=== PATIENT | male | born 1945 | race Caucasian/White ===

== ENCOUNTER → 2017-01-04 | Outpatient (CLI) | payer OTHER, MEDICARE | LOC: MMPC 11:11 | PROVIDERS: ATTEND Nurse Practitioner | DX: J44.9 Chronic obstructive pulmonary disease, unspecified (principal); R09.02 Hypoxemia; M81.0 Age-related osteoporosis without current pathological fracture; E78.00 Pure hypercholesterolemia, unspecified; R30.0 Dysuria | CPT/HCPCS: 99213; G0463 ==

== ENCOUNTER → 2017-01-14 | Outpatient (CLI) | payer OTHER, MEDICARE ==
[2017-01-14 15:10] LABS: BILIRUBIN,TOTAL 0.9 mg/dL (0.3-1.2); BUN/CREATININE RATIO 27.14 (6-20); CALCIUM 9.6 mg/dL (8.7-10.7); CREATININE 0.7 mg/dL (0.70-1.50); LDL CHOLESTEROL,CALCULATED 83.4 mg/dL; POTASSIUM 4.4 meq/L (3.8-5.2); TOTAL PROTEIN 7.3 g/dL (6.1-8.0)
[2017-01-16 10:29] LABS: PSAFREE <0.1 ng/mL (()); PSATOTAL 0.15 ng/mL (<=6.5)
== END ==
LOC: LAB 13:42
PROVIDERS: ATTEND Nurse Practitioner
DX: I10 Essential (primary) hypertension (principal); E78.00 Pure hypercholesterolemia, unspecified; M81.0 Age-related osteoporosis without current pathological fracture; R30.0 Dysuria; E29.1 Testicular hypofunction; F17.210 Nicotine dependence, cigarettes, uncomplicated
CPT/HCPCS: 36415; 80053; 80061; 84153; 84154

== ENCOUNTER → 2017-02-14 | Outpatient (CLI) | payer OTHER, MEDICARE ==
[2017-02-14 10:23] LABS: BUN/CREATININE RATIO 25.71 (6-20); CALCIUM 9.4 mg/dL (8.7-10.7)
== END ==
LOC: LAB 09:42
PROVIDERS: ATTEND Internal Medicine
DX: I48.91 Unspecified atrial fibrillation (principal); I10 Essential (primary) hypertension; F17.210 Nicotine dependence, cigarettes, uncomplicated
CPT/HCPCS: 36415; 80048

== ENCOUNTER → 2017-02-21 | Outpatient (CLI) | payer OTHER, MEDICARE ==
--- NOTE | 2017-02-21 18:56 | DI ---
CT ABD W/CN AND PELVIS W/CN,02/21/2017 12:57 PM: Clinical History: History of tobacco use. Previous Exam: December 15, 2015 Findings: Multiple helically acquired CT images are obtained through the abdomen and pelvis following the intra venous administration of contrast, and demonstrate diffuse peripheral vascular calcifications. The appendix is normal. Moderate stool is noted throughout the colon. The pancreas, adrenals and kidneys are unremarkable. The spleen, gallbladder and pancreas are unremar kable. There is some irregular contour of the liver consistent with diffuse cirrhosis. The lung bases are clear. Diffuse degenerative changes of the spine are seen. Small bowel loops are not well evaluated, but are grossly normal. Impression: 1. Hepatic cirrhosis. 2. Diffuse peripheral vascular disease.
== END ==
LOC: CT 12:50
PROVIDERS: ATTEND Internal Medicine
DX: J44.9 Chronic obstructive pulmonary disease, unspecified (principal); Z87.891 Personal history of nicotine dependence
CPT/HCPCS: 74177

== ENCOUNTER → 2017-03-13 | Outpatient (CLI) | payer OTHER, MEDICARE | LOC: MMPC 11:11 | PROVIDERS: ATTEND Internal Medicine | DX: M17.11 Unilateral primary osteoarthritis, right knee (principal); I10 Essential (primary) hypertension; J44.9 Chronic obstructive pulmonary disease, unspecified; G47.33 Obstructive sleep apnea (adult) (pediatric); I25.10 Atherosclerotic heart disease of native coronary artery without angina pectoris; I48.0 Paroxysmal atrial fibrillation; Z02.89 Encounter for other administrative examinations | CPT/HCPCS: 99214; G0463 ==

== ENCOUNTER → 2017-03-27 | Outpatient (CLI) | payer OTHER, MEDICARE | LOC: MMPC 11:11 | PROVIDERS: ATTEND Internal Medicine | DX: M17.11 Unilateral primary osteoarthritis, right knee (principal); Z02.89 Encounter for other administrative examinations | CPT/HCPCS: 20610 ×2; G0463; J1040 ==

== ENCOUNTER → 2017-03-30 | Outpatient (CLI) | payer OTHER, MEDICARE | LOC: MMPC 11:11 | PROVIDERS: ATTEND Nurse Practitioner | DX: L98.9 Disorder of the skin and subcutaneous tissue, unspecified (principal) | CPT/HCPCS: 99212; G0463 ==

== ENCOUNTER 2017-03-31 05:59 | Emergency (ER) | payer OTHER, MEDICARE ==
[2017-03-31 06:23] VITALS: RESP 12; TEMP 96
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
== END 2017-03-31 06:33 | disposition home or self-care (01) ==
LOC: ER 05:59
DX: S00.81XA Abrasion of other part of head, initial encounter (principal); S50.11XA Contusion of right forearm, initial encounter; W01.0XXA Fall on same level from slipping, tripping and stumbling without subsequent striking against object, initial encounter
CPT/HCPCS: 99282

== ENCOUNTER → 2017-05-22 | Outpatient (CLI) | payer OTHER, MEDICARE ==
--- NOTE | 2017-05-22 13:25 | DI ---
XR SHOULDER MIN 2VW,05/22/2017 10:33 AM: Clinical History: Right shoulder pain. Previous Exam: November 06, 2011 Findings: 3 views of the right shoulder are obtained, and demonstrate advanced degenerative changes which appea r stable from the prior exam. This is worst at the right glenohumeral joint. There are some mild degenerative changes of the right acromioclavicular joint. Diffuse osteopenia is noted. There is a new bony fragment just inferior to the right lower clinoid not seen on the examination fro 2010. The adjacent right lung and chest wall is unremarkable. There is also a pacemaker noted. Multiple sternotomy wires are noted. Impression: Advanced degenerative osteoarthritis of the right shoulder with a new osseous fragment along the infe rior margin of the glenoid most likely representing an osteochondral defect.
== END ==
LOC: ORTHO 10:54
PROVIDERS: ATTEND Physician Assistant
DX: M25.511 Pain in right shoulder (principal); M19.011 Primary osteoarthritis, right shoulder; M75.41 Impingement syndrome of right shoulder
CPT/HCPCS: 73030

== ENCOUNTER → 2017-06-12 | Outpatient (CLI) | payer OTHER, MEDICARE | LOC: MMPC 11:11 | PROVIDERS: ATTEND Internal Medicine | DX: M17.11 Unilateral primary osteoarthritis, right knee (principal); I10 Essential (primary) hypertension; J44.9 Chronic obstructive pulmonary disease, unspecified; G47.33 Obstructive sleep apnea (adult) (pediatric); M96.1 Postlaminectomy syndrome, not elsewhere classified | CPT/HCPCS: 20610 ×2; 99214; G0463; J1040 ==

== ENCOUNTER 2018-12-06 06:45 | Inpatient (IN) ==
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
[2018-12-06] MEDS ORDERED: IPRATROPIUM/ALBUTEROL SULFATE 3 ML NEB NEB ONE (07:15)
[2018-12-06] MEDS ORDERED: KETOROLAC 15 MG/1 ML VIAL IVP ONE (07:15)
[2018-12-06] MEDS ORDERED: ONDANSETRON 4 MG/2 ML VIAL IVP ONE (07:15)
[2018-12-06 07:38] LABS: Hematocrit [HCT] 44.4 % (42.0-52.0); Hemoglobin [HGB] 14.7 g/dL (14.0-18.0); MEAN CORPUSCULAR HEMOGLOBIN 29.9 PG (27-31); MEAN CORPUSCULAR HGB CONC 33.1 g/dL (33-37); MEAN CORPUSCULAR VOLUME 90.4 FL (80-90); RED BLOOD COUNT 4.91 10^6/uL (4.70-6.10)
[2018-12-06 07:39] LABS: BASOPHILS # (AUTO) 0.05 10*3/UL; BASOPHILS % (AUTO) 0.6 % (0-1); EOSINOPHILS # (AUTO) 0.22 10*3/UL; EOSINOPHILS % (AUTO) 2.6 % (0-8); LYMPHOCYTES # (AUTO) 1.63 10*3/uL; MEAN PLATELET VOLUME 10.7 FL (7.4-12.2); MONOCYTES # (AUTO) 0.86 10*3/UL (0.3-0.8); MONOCYTES % (AUTO) 10.2 % (5-15); NEUTROPHILS # (AUTO) 5.67 10*3/UL; NEUTROPHILS % (AUTO) 67.1 % (50-80); PLATELET MORPHOLOGY COMMENT NORMAL MORPHOLOGY (NORM); RBC MORPHOLOGY COMMENT NORMAL MORPHOLOGY (NORM); WBC MORPHOLOGY COMMENT NORMAL MORPHOLOGY (NORM)
[2018-12-06 07:45] LABS: BLOOD UREA NITROGEN 17 mg/dL (7-22); BUN/CREATININE RATIO 24.28 (6-20); SERUM ALBUMIN 4.3 g/dL (3.5-4.8)
--- NOTE | 2018-12-06 08:35 | DI ---
CT Head WO Contrast 12/06/2018 7:10 AM [place] [facility] [place] Comparison: 05/28/2016. Procedure: Noncontrast axial CT images through the head were obtained at 5 mm with coronal and sagitt al reformations. Bony algorithm axial reconstructions were also provided. Findings: There is no intracranial hemorrhage or extra-axial fluid collection. The ventricles are sy mmetric. There is mild global atrophy which is within the expected range for age. Decreased attenua tion in the periventricular and subcortical white matter is consistent with mild chronic small vessel ischemic changes. There is otherwise normal claros-white differentiation without focal mass or mass-e ffect. The visualized portions of the mastoid air cells are clear. There is mild mucosal thickening o f the ethmoid air cells and right sphenoid sinus, consistent with chronic sinus disease. Review of th e osseous structures demonstrate no depressed calvarial fracture or aggressive osseous lesion. There are postsurgical changes of the right globe. The facial soft tissues are unremarkable. Impression: 1. No acute intracranial findings. 2. Chronic changes as above.
--- NOTE | 2018-12-06 09:03 | DI ---
CT Chest W Contrast 12/06/2018 7:07 AM History: [facility] DI ^sob Comparison: Chest x-ray from 12/05/2018. Technique: Contrast enhanced CT of the chest was performed after the administration of 59 mL of Isovu e intravenous contrast. Axial, coronal, and sagittal images were obtained from the thoracic inlet thr ough the lung bases. Findings: Early emphysematous changes are noted bilaterally. There is no consolidation, pneumothorax, or pleural effusion. There is a 9 mm fissural nodule along the horizontal fissure of the right lung. No other suspicious nodules are detected. There is mild diffuse bronchial wall thickening with no endobronchial lesion. There is no mediastinal or hilar lymphadenopathy. The aorta demonstrates normal course and caliber. There are atheromatous a ortic and coronary artery calcifications. The main pulmonary artery is dilated at 3.6 cm. The patient is status post median sternotomy. There is a 2-lead left chest cardiac device with wire tips in the right atrium and right ventricle. Heart size is at the upper limits of normal with no pericardial eff usion. The posterior pericardium is calcified, a finding that can be seen in the setting of prior inf ection or inflammation. The thyroid exhibits normal CT morphology. Osseous structures are notable for severe degenerative changes of the right glenohumeral joint. There are extensive splenic artery calcifications without aneurysmal dilatation. The visualized upper abdominal structures are otherwise grossly normal. Impression: 1. Borderline cardiomegaly without evidence of pulmonary edema. 2. Emphysematous changes are present bilaterally. There is no dense consolidation, pneumothorax, or p leural effusion. 3. The main pulmonary artery is dilated, a finding that can be seen in the setting of pulmonary arter y hypertension. 4. Mild diffuse bronchial wall thickening, a finding associated with acute and chronic bronchitis.
[2018-12-06] MEDS ORDERED: ONDANSETRON 4 MG/2 ML VIAL IVP PRN (12:20)
[2018-12-06] MEDS ORDERED: FLUCONAZOLE 150 MG PO SCH (12:20)
[2018-12-06] MEDS ORDERED: LIDOCAINE W/ SODIUM BICARB 0.5 ML SYR SUBD PRN (12:20)
[2018-12-06] MEDS ORDERED: NYSTATIN 15 GM POWDER TOPICAL PRN (12:20)
[2018-12-06] MEDS ORDERED: DICLOFENAC SODIUM 4 GM TOPICAL SCH (13:00)
--- NOTE | 2018-12-06 15:09 | EKG ---
[address] [address] Measurements Intervals [place] Rate: P: [place]: 0 QRS: -63 QRSD: 170 T: 84 QT: 473 QTc: 473 Interpretive Statements ATRIAL FIBRILLATION WITH ELECTRONIC VENTRICULAR PACEMAKER ABNORMAL RHYTHM ECG Compared to ECG 10/05/2018 17:38:56 No significant changes Electronically Signed On 12-07-18 16:17:25 MST by Cecil Angelo [email or web address]
--- NOTE | 2018-12-06 15:38 | PDOC ---
HPI - History of Present Illness Date of Service: 12/06/18 Time of Service: 15:32 Chief Complaint: Falling into crews, dizzy History of Present Illness: This very pleasant but very confused 73-year-old male who has had 2 COPD exacerbations in the last 6 weeks, and was recently seen in the clinic on 12/05/2017 and placed on doxycycline and steroids. He came into the emergency room today stating that he had a hard time walking around his house, and was falling into crews. However when I woke him up, the patient was quite exhausted, occasionally had twitches of his upper extremities and lower extremities. Seemed almost post ictal, and confused. A Mini-Mental state examination done at bedside had a score of 13/30. I do not know if he has underlying dementia but it is not listed in his problems at the clinic on my review of the medical record. He cannot tell me if he got better in the emergency room with breathing therapies or not. He was given a dose of albuterol down there. CT scan of the chest did not show any evidence of pneumonia but does show evidence of emphysema with probable bronchitis. He smokes. He denies any chest pain. He denies any prior history of seizures. His recall of current events was not there at all. During the event and which I size eyes flutter and his arms twitch, I wonder if he wasn't having seizures and I ordered a brain MRI scan, but unfortunately cannot do that because he has a pacemaker in place for sick sinus syndrome in the past. His initial troponin is negative. Past Medical History Medical History: The patient cannot provide me any details of his medical history. Based on review of the medical record, the patient has a following iss ues: 1. Coronary artery disease status post CABG. 2. COPD no oxygen requirement at home in a patient who continues to smoke. 3. Hypertension. 4. Atrial fibrillation on Xarelto for stroke prevention. 5. Sick sinus syndrome status post pacemaker. 6. Tobacco abuse. 7. Glaucoma. 8. Osteoarthritis Surgical History: The patient could not detail to me surgeries in the past. However, he has had CABG and a left knee replacement. He has also had a pacemaker placed. Has had a back surgery. Per my review of the medical record these had a pericardiectomy and also has had a tonsillectomy. The patient could only recall that he had had a tonsillectomy. Pertinent Family History: At first the patient said he did not recall but stated that his mother had had a stroke. Past Social History: Smokes daily. Does not drink alcohol. Lives alone. Has 5 children. Tobacco Use: Current Every Day Smoker In the Past 12 Months, Have Used or Abuse Any of the Following Substance: None Alcohol Use: None Medication / Allergies Home Medications: Home Medications Medication Instructions Recorded Confirmed Type Latanoprost [Xalatan] 1 drp OP DAILY drp 02/10/14 12/06/18 History Denosumab [Prolia] 60 mg SUBCUT every 6 months #0 ml 02/11/16 12/06/18 History Diclofenac Sodium [Voltaren] 4 gm TOPICAL QID #3 tube 05/22/17 12/06/18 Rx umeclidinium 62.5 mcg/actuation 62.5 mcg INH QD #30 ea 02/25/18 12/06/18 Clinic blister powder for inhalation olmesartan 40 mg tablet 40 mg PO DAILY #90 tab 04/29/18 12/06/18 Rx rosuvastatin 20 mg tablet 20 mg PO QDAY #90 tab 05/02/18 12/06/18 Rx fluconazole 150 mg tablet 150 mg PO QDAY #5 tab 05/06/18 12/06/18 Rx nystatin 100,000 unit/gram topical 1 applic TOPICAL TID PRN #30 g 08/27/18 12/06/18 Rx powder rivaroxaban 20 mg tablet 20 mg PO QDAY #90 tab 10/15/18 12/06/18 Rx duloxetine 30 mg capsule,delayed 30 mg PO QHS #90 cap 10/30/18 12/06/18 Rx release ipratropium-albuterol 0.5 mg-3 3 ml INH Q4-6H PRN #180 ml 11/15/18 12/06/18 Rx mg(2.5 mg base)/3 mL nebulization soln doxycycline hyclate 100 mg capsule 100 mg PO BID 10 Days #20 cap 12/05/18 12/06/18 Rx prednisone 10 mg tablet 40 mg PO QDAY #28 tab 12/05/18 12/06/18 Rx Allergies/Adverse Reactions: Allergies Allergy/AdvReac Type Severity Reaction Status Date / Time No Known Drug Allergies Allergy NOT Verified 12/06/18 11:19 APPLICABLE PAIN CONTRACT AdvReac NOT Uncoded 12/06/18 11:19 APPLICABLE Review of Systems - Review of Systems ROS Unobtainable: Due to Mental Status (Patient was very confused and I could not obtain a good review of systems. The patient does deny chest pain. He really cannot describe his respiratory symptoms. He denies any nausea or vomiting. When I asked him if these had seizures, he states "that does not sound like me") Exam - Vitals Vital Signs: Vital Signs Temperature 97.4 F Temperature Source Temporal Artery Scan Pulse Rate [Pulse Oximeter] 88 Pulse Rate 60 Respiratory Rate 20 Blood Pressure [Left Arm] 159/74 Blood Pressure 126/77 Pulse Ox 90 Oxygen Flow Rate 1 Oxygen Delivery Method Nasal Cannula Height 5 ft 8 in Weight 220 lb - General General Appearance: No Acute Distress, Cooperative - Head Head Exam: Normal Inspection, Normocephalic, Atraumatic - Eye Eye Exam: POSITIVE: No Scleral Icterus - ENT ENT Exam: POSITIVE: Mucous Membranes Moist - Neck Neck Exam: JVP is not Raised - Respiratory Respiratory Exam: POSITIVE: Breathing Non Labored, Wheezes - Cardiovascular Cardiovascular Exam: POSITIVE: RRR, No Murmur, No Clicks, No Gallops, No Rubs, No JVD - GI/Abdominal GI/Abdominal Exam: POSITIVE: Normal Bowel Sounds, Non Tender, Non Distended, Soft - Rectal Rectal Exam: POSITIVE: Deferred - External Exam: POSITIVE: Deferred Exam: POSITIVE: Deferred - Extremities Extremities Exam: POSITIVE: No Clubbing Present, No Edema Present, No Cyanosis Present - Back Back Exam: POSITIVE: No CVA Tenderness - Neurological Neurological Exam: POSITIVE: Alert, No Facial Droop, Speech Intact / Clear, Moves All Extremities Equally, Altered (Alert to self. Not alert to place, time, or situation.) - Psychiatric Psychiatric Exam: POSITIVE: Normal Affect, Normal Mood - Integumentary Integumentary Exam: POSITIVE: Warm, Dry, Intact Results - Labs CBC and BMP: 12/06/18 07:29 12/06/18 07:29 Additional Lab Results: Laboratory Results 12/06/18 12/06/18 12/06/18 07:29 07:29 07:29 WBC 8.45 RBC 4.91 Hgb 14.7 Hct 44.4 MCV 90.4 H MCH 29.9 MCHC 33.1 RDW Std Deviation 50.3 H RDW Coeff of Jaden 15.3 H Plt Count 158 MPV 10.7 Immature Gran % (Auto) 0.2 Neut % (Auto) 67.1 Lymph % (Auto) 19.3 Menard % (Auto) 10.2 Eos % (Auto) 2.6 Baso % (Auto) 0.6 Immature Gran # (Auto) 0.02 Neut # (Auto) 5.67 Lymph # (Auto) 1.63 Menard # (Auto) 0.86 H Eos # (Auto) 0.22 Baso # (Auto) 0.05 WBC Morphology Comment Normal morphology Plt Morphology Comment Normal morphology RBC Morph Comment Normal morphology PT INR D-Dimer 0.49 Sodium 138 Potassium 4.7 Chloride 102 Carbon Dioxide 28 Anion Gap 8 BUN 17 Creatinine 0.7 BUN/Creatinine Ratio 24.28 H Glucose 95 Calculated Osmolality 287.0 Calcium 9.4 Magnesium 2.0 Total Bilirubin 1.1 AST 28 ALT 18 L Alkaline Phosphatase 55 Troponin I Handheld C-Reactive Protein 3.4 H NT-Pro-B Natriuret Pep 1530 H Total Protein 7.0 Albumin 4.3 Globulin 2.7 Albumin/Globulin Ratio 1.50 12/06/18 12/06/18 07:29 07:29 WBC RBC Hgb Hct MCV MCH MCHC RDW Std Deviation RDW Coeff of Jaden Plt Count MPV Immature Gran % (Auto) Neut % (Auto) Lymph % (Auto) Menard % (Auto) Eos % (Auto) Baso % (Auto) Immature Gran # (Auto) Neut # (Auto) Lymph # (Auto) [place]ard # (Auto) Eos # (Auto) Baso # (Auto) WBC Morphology Comment Plt Morphology Comment RBC Morph Comment PT 10.8 INR 1.06 D-Dimer Sodium Potassium Chloride Carbon Dioxide Anion Gap BUN Creatinine BUN/Creatinine Ratio Glucose Calculated Osmolality Calcium Magnesium Total Bilirubin AST ALT Alkaline Phosphatase Troponin I Handheld 0.010 C-Reactive Protein NT-Pro-B Natriuret Pep Total Protein Albumin Globulin Albumin/Globulin Ratio - EKG Data -: EKG Interpreted by Me - EKG Data EKG Interpretation: Other (Pacemaker noted, paced rhythm) - Imaging Status: Image Reviewed by Me (Chest x-ray from 12/05/2018 does not show any evidence of pneumonia. On my view of the CT scan, no pneumonia. Head CT scan does not show any acute bleeding.) Assessment and Plan - Patient Problems (1) Altered mental status Current Visit: Yes Status: Acute Code(s): R41.82 - Altered mental status, unspecified Qualifiers: Altered mental status type: disorientation Qualified Code(s): R41.0 - Disorientation, unspecified (2) COPD exacerbation Current Visit: Yes Status: Acute Code(s): J44.1 - Chronic obstructive pulmonary disease with (acute) exacerbation (3) Tobacco use disorder Current Visit: Yes Status: Chronic Onset Date: 03/07/16 Code(s): F17.200 - Nicotine dependence, unspecified, uncomplicated (4) Obstructive sleep apnea syndrome in adult Current Visit: Yes Status: Chronic Onset Date: 02/28/11 Comment: Admits noncompliance with CPAP Code(s): G47.33 - Obstructive sleep apnea (adult) (pediatric) (5) Hypercholesterolemia Current Visit: Yes Status: Chronic Onset Date: 02/10/14 Code(s): E78.00 - Pure hypercholesterolemia, unspecified (6) Coronary arteriosclerosis Current Visit: Yes Status: Chronic Onset Date: 02/10/14 Code(s): I25.10 - Atherosclerotic heart disease of cabaz[place] coronary artery without angina pectoris (7) Benign essential hypertension Current Visit: Yes Status: Acute Onset Date: 02/28/11 Code(s): I10 - Essential (primary) hypertension (8) Chronic atrial fibrillation Current Visit: Yes Status: Chronic Onset Date: 02/10/14 Code(s): I48.2 - Chronic atrial fibrillation - Assessment / Plan Additional Assessment/Plan Details: I spoke with the emergency room physician. The patient was alert and oriented in the emergency room, did not exhibit any signs of seizure activity. But on my examination he had convulsion-like activity of his upper extremities, twitching of his eyes, and confusion as of postictal period those episodes would come and go and he fell asleep often during my examination. He would then wake up and seemed very confused on his location and whereabouts. He could follow basic commands and I wonder if he is not having a seizure. I spoke with the neurologist in [place] and based on the description of the event here today, but lack of infectious signs or symptoms, the suggestion was to treat for seizures and Keppra 500 twice a day and consider an EEG as an outpatient. It was recommended that if the patient develops any fever or any infectious signs or symptoms such as an elevated white blood cell count, that the patient should have a spinal tap performed. The neurologist would like an update tomorrow if possible. I will go ahead and continue prednisone and IV Zithromax for her COPD exacerbation. I'll stop the doxycycline at this time. Add in when necessary albuterol and also scheduled Spiriva. Labs in a.m. There is report of cirrhosis in the medical record on my review but I don't think the patient has not based on exam or on labs that I am aware of but I will go ahead and check an ammonia level. Oxygen as needed per protocol. I called the patient's son, Cristhian, but he was not available and I left a message to call about Hospital back so I can get some corroborating or collateral information. I cannot confirm the patient's CODE STATUS so he is full code for now. Complex, mental status really throws a curb into this patient's situation, and I do not think that he will be able to have this all elucidated within one midnight and therefore I will admit him as an inpatient with a COPD exacerbation and altered mental status probably related to seizure of new onset. I cannot get a brain MRI as patient has a pacemaker present.
[2018-12-06] MEDS ORDERED: Rivaroxaban Tab 10 MG TAB PO SCH (17:00)
[2018-12-06] MEDS ORDERED: LORazepam 2 MG/1 ML VIAL IM PRN (19:40)
[2018-12-06] MEDS ORDERED: Rosuvastatin Tab 20 MG TAB PO SCH (21:00)
[2018-12-06] MEDS ORDERED: DULOXETINE 30 MG CAPSULE PO SCH (21:00)
[2018-12-06] MEDS: ALBUTEROL SULFATE 2.5 MG/3 ML NEB PRN (21:31)
[2018-12-07] MEDS ORDERED: LORazepam 2 MG/1 ML VIAL IVP PRN (01:14)
[2018-12-07 04:37] LABS: BASOPHILS # (AUTO) 0.06 10*3/UL; BASOPHILS % (AUTO) 1.2 % (0-1); EOSINOPHILS # (AUTO) 0.35 10*3/UL; EOSINOPHILS % (AUTO) 6.7 % (0-8); LYMPHOCYTES # (AUTO) 1.79 10*3/uL; MEAN CORPUSCULAR HEMOGLOBIN 29.3 PG (27-31); MEAN CORPUSCULAR HGB CONC 31.7 g/dL (33-37); MEAN CORPUSCULAR VOLUME 92.3 FL (80-90); MEAN PLATELET VOLUME 11.2 FL (7.4-12.2); MONOCYTES # (AUTO) 0.55 10*3/UL (0.3-0.8); MONOCYTES % (AUTO) 10.6 % (5-15); NEUTROPHILS # (AUTO) 2.44 10*3/UL; RED BLOOD COUNT 4.44 10^6/uL (4.70-6.10)
[2018-12-07 04:40] LABS: PLATELET MORPHOLOGY COMMENT NORMAL MORPHOLOGY (NORM); RBC MORPHOLOGY COMMENT NORMAL MORPHOLOGY (NORM); WBC MORPHOLOGY COMMENT NORMAL MORPHOLOGY (NORM)
[2018-12-07 04:46] LABS: BLOOD UREA NITROGEN 17 mg/dL (7-22); BUN/CREATININE RATIO 28.33 (6-20)
[2018-12-07] MEDS ORDERED: TIOTROPIUM BROMIDE 18 MCG CAPSULE INH SCH (07:00)
[2018-12-07 07:16] VITALS: BP 127/90; TEMP 96.8
[2018-12-07] MEDS ORDERED: Olmesartan Tab 40 MG TAB PO SCH (09:00)
[2018-12-07] MEDS ORDERED: ENOXAPARIN SODIUM 40 MG/0.4 ML SYRINGE SUBCUT SCH (09:00)
[2018-12-07] MEDS ORDERED: predniSONE Tab 20 MG TAB PO SCH (09:00)
[2018-12-07] MEDS ORDERED: LATANOPROST 0.005% 2.5 ML EYE DROPS EACH EYE SCH (09:00)
[2018-12-07] MEDS: ALBUTEROL SULFATE 2.5 MG/3 ML NEB PRN (10:12)
[2018-12-07 10:15] VITALS: RESP 12
--- NOTE | 2018-12-07 10:45 | DCSUMMARY ---
Hospitalization Summary Hospital Course: Final Discharge Diagnosis: Current Visit Problems Problem Status Onset Code Bronchitis Acute J40 Dizziness Acute R42 Altered mental status Acute R41.82 COPD exacerbation Acute J44.1 Tobacco use disorder Chronic 03/07/16 F17.200 Obstructive sleep apnea syndrome in adult Chronic 02/28/11 G47.33 Hypercholesterolemia Chronic 02/10/14 E78.00 Coronary arteriosclerosis Chronic 02/10/14 I25.10 Benign essential hypertension Acute 02/28/11 I10 Chronic atrial fibrillation Chronic 02/10/14 I48.2 Diagnostic Data, Laboratory Data, and Procedures of Signifigance: Laboratory Results 12/06/18 12/07/18 12/07/18 17:33 04:13 04:13 WBC 5.19 RBC 4.44 L Hgb 13.0 L Hct 41.0 L MCV 92.3 H MCH 29.3 MCHC 31.7 L RDW Std Deviation 50.4 H RDW Coeff of Jaden 15.3 H Plt Count 135 L MPV 11.2 Immature Gran % (Auto) 0 Neut % (Auto) 47.0 L Lymph % (Auto) 34.5 Sunflower % (Auto) 10.6 Eos % (Auto) 6.7 Baso % (Auto) 1.2 H Immature Gran # (Auto) 0 Neut # (Auto) 2.44 Lymph # (Auto) 1.79 Sunflower # (Auto) 0.55 Eos # (Auto) 0.35 Baso # (Auto) 0.06 WBC Morphology Comment Normal morphology Plt Morphology Comment Normal morphology RBC Morph Comment Normal morphology Sodium 137 Potassium 4.2 Chloride 106 Carbon Dioxide 29 Anion Gap 2 L BUN 17 Creatinine 0.6 L Estimated GFR Granulator Operator BUN/Creatinine Ratio 28.33 H Glucose 80 Calculated Osmolality 284.0 Calcium 8.3 L Ammonia 10 History and Physical pertinent to Admission: Past Medical History Medical History: The patient cannot provide me any details of his medical history. Based on review of the medical record, the patient has a following issues: 1. Coronary artery disease status post CABG. 2. COPD no oxygen requirement at home in a patient who continues to smoke. 3. Hypertension. 4. Atrial fibrillation on Xarelto for stroke prevention. 5. Sick sinus syndrome status post pacemaker. 6. Tobacco abuse. 7. Glaucoma. 8. Osteoarthritis Surgical History: The patient could not detail to me surgeries in the past. However, he has had CABG and a left knee replacement. He has also had a pacemaker placed. Has had a back surgery. Per my review of the medical record these had a pericardiectomy and also has had a tonsillectomy. The patient could only recall that he had had a tonsillectomy. Pertinent Family History: At first the patient said he did not recall but stated that his mother had had a stroke. Past Social History: Smokes daily. Does not drink alcohol. Lives alone. Has 5 children. Tobacco Use: Current Every Day Smoker In the Past 12 Months, Have Used or Abuse Any of the Following Substance: None Alcohol Use: None Course of Hospitalization: This is a very nice 72-year-old gentleman with a history of COPD 2 exacerbations in the last 6 weeks being treated with steroids and antibiotics at present time was admitted to the hospital because he stated that he had a hard time walking around his house and that was falling into the crews and he could not stop it. Was admitted overnight treated with Keppra Ativan he keeps on having what I believe are seizures this morning when I evaluated him he was talking to me and following commands and then all of a sudden he blanked out with the stair not following commands and 5 seconds later and he started following commands again. Please see H&P from my colleague I discussed the case with Dr. Low neurology at [facility] my colleague Dr. Rodriguez already had spoken to him yesterday and they had discussed that if things were not better with therapy patient would need a neurology and evaluation. I did discuss the case again with him and he recommended patient be transferred to [facility] for neurology evaluation. Dr. Low accepted the patient in transfer On the date of discharge, the patient was examined: Gen.: No acute distress, alert, nontoxic Heart: Regular rate and rhythm, no murmurs, clicks, gallops, or rubs Lungs: Decreased breath sounds bilaterally Abdomen/GI: Normal tones on auscultation, soft, nontender, nondistended Musculoskeletal/extremities: No clubbing, cyanosis, or edema Neurology patient follows commands and suddenly has the and absent stair which showed resolved in 5-10 seconds and this is being going on since admission as per nursing as well Vitals reviewed and are listed below Vital Signs (24 hrs) 12/06/18 12:15 12/06/18 12:21 12/06/18 13:00 Temperature 97.4 F 97.2 F Pulse Rate 60 Pulse Rate [Pulse Oximeter] 88 62 Respiratory Rate 16 20 20 Blood Pressure 126/77 Blood Pressure [Left Arm] 126/66 Blood Pressure [Right Arm] Pulse Ox 90 93 12/06/18 15:00 12/06/18 17:00 12/06/18 18:59 Temperature 97.8 F Pulse Rate 60 60 Pulse Rate [Pulse Oximeter] 59 L Respiratory Rate 20 Blood Pressure Blood Pressure [Left Arm] 144/82 Blood Pressure [Right Arm] Pulse Ox 94 94 12/06/18 20:37 12/06/18 20:38 12/06/18 21:31 Temperature 98.2 F Pulse Rate 60 Pulse Rate [Pulse Oximeter] 59 L Respiratory Rate 12 14 Blood Pressure Blood Pressure [Left Arm] Blood Pressure [Right Arm] 148/75 Pulse Ox 95 95 95 12/06/18 21:32 12/06/18 23:01 12/06/18 23:11 Temperature Pulse Rate 60 60 Pulse Rate [Pulse Oximeter] Respiratory Rate 14 Blood Pressure Blood Pressure [Left Arm] Blood Pressure [Right Arm] Pulse Ox 94 12/07/18 00:01 12/07/18 03:00 12/07/18 03:41 Temperature 97.6 F Pulse Rate 60 Pulse Rate [Pulse Oximeter] 60 Respiratory Rate 12 Blood Pressure Blood Pressure [Left Arm] Blood Pressure [Right Arm] 142/94 Pulse Ox 93 93 12/07/18 04:30 12/07/18 04:42 12/07/18 07:00 Temperature 98.0 F Pulse Rate 60 Pulse Rate [Pulse Oximeter] 60 Respiratory Rate 12 Blood Pressure Blood Pressure [Left Arm] Blood Pressure [Right Arm] 105/61 Pulse Ox 93 97 96 12/07/18 07:15 12/07/18 10:12 12/07/18 10:13 Temperature 96.8 F Pulse Rate 60 60 Pulse Rate [Pulse Oximeter] 61 Respiratory Rate 16 12 12 Blood Pressure Blood Pressure [Left Arm] 127/90 Blood Pressure [Right Arm] Pulse Ox 96 97 Assessment and Plan: 1. As per discharge assessments above 2. Disposition: Transferred to [facility] 3. Condition on discharge, stable and improved. 4. Diet: regular diet 5. Activities: resume normal activities 6. Follow-Up: 1. PCP 2. 7. Medications at the Time of Discharge: Active Medications Generic Name Dose Route Start Last Admin Trade Name Freq PRN Reason Stop Dose Admin Albuterol Sulfate 2.5 mg 12/06/18 12:20 12/07/18 10:12 Albuterol Neb Soln 0.083% NEB 2.5 mg Q1H PRN Administration Shortness of Breath Azithromycin 500 mg 12/08/18 14:00 Zithromax PO 12/12/18 14:01 Q24H TARUN Duloxetine HCl 30 mg 12/06/18 21:00 12/06/18 20:30 Cymbalta PO 30 mg BEDTIME TARUN Administration Azithromycin 500 mg/ Sodium 250 mls @ 250 mls/hr 12/06/18 14:00 12/06/18 14:33 Chloride IV 12/08/18 13:59 250 mls/hr Q24H TARUN Administration Sodium Chloride 25 mls @ 200 mls/hr 12/06/18 12:20 12/06/18 17:45 Normal Saline 0.9% IV 200 mls/hr .Post Infusion PRN Administration No Primary IV for Flush ONLY Levetiracetam 500 mg/ Sodium 105 mls @ 400 mls/hr 12/06/18 21:00 12/07/18 09:07 Chloride IV 400 mls/hr BID TARUN Administration Latanoprost 1 drp 12/07/18 09:00 12/07/18 09:07 Xalatan Ophth Soln 0.005% EACH EYE 1 drp DAILY TARUN Administration Lidocaine HCl 0.5 ml 12/06/18 12:20 Lidocaine Buffered Inj SUBD ONCE PRN IV Starts Lorazepam 2 mg 12/06/18 19:40 12/06/18 20:17 Ativan Inj IM 2 mg ONCE PRN Administration seizure Lorazepam 2 mg 12/07/18 01:14 12/07/18 01:20 Ativan Inj IVP 2 mg Q1H PRN Administration seizure activity Nystatin 1 applic 12/06/18 12:20 Mycostatin Powder TOPICAL TID PRN Rash Olmesartan 40 mg 12/07/18 09:00 12/07/18 09:07 Benicar PO 40 mg DAILY TARUN Administration Ondansetron HCl 4 mg 12/06/18 12:20 Zofran Inj IVP Q6H PRN NAUSEA / VOMITING Prednisone 40 mg 12/07/18 09:00 12/07/18 09:07 Deltasone Tab PO 12/21/18 08:59 40 mg DAILY TARUN Administration Rosuvastatin Calcium 20 mg 12/06/18 21:00 12/06/18 20:30 Crestor PO 20 mg BEDTIME TARUN Administration Tiotropium [place] 18 mcg 12/07/18 07:00 12/07/18 06:26 Spiriva Inhalation Cap INH 18 mcg RTDAILY TARUN Administration Home Medications Medication Instructions Recorded Confirmed Type Latanoprost [Xalatan] 1 drp OP DAILY drp 02/10/14 12/06/18 History Denosumab [Prolia] 60 mg SUBCUT every 6 months #0 ml 02/11/16 12/06/18 History Diclofenac Sodium [Voltaren] 4 gm TOPICAL QID #3 tube 05/22/17 12/06/18 Rx umeclidinium 62.5 mcg/actuation 62.5 mcg INH QD #30 ea 02/25/18 12/06/18 Clinic blister powder for inhalation olmesartan 40 mg tablet 40 mg PO DAILY #90 tab 04/29/18 12/06/18 Rx rosuvastatin 20 mg tablet 20 mg PO QDAY #90 tab 05/02/18 12/06/18 Rx fluconazole 150 mg tablet 150 mg PO QDAY #5 tab 05/06/18 12/06/18 Rx nystatin 100,000 unit/gram topical 1 applic TOPICAL TID PRN #30 g 08/27/18 12/06/18 Rx powder rivaroxaban 20 mg tablet 20 mg PO QDAY #90 tab 10/15/18 12/06/18 Rx duloxetine 30 mg capsule,delayed 30 mg PO QHS #90 cap 10/30/18 12/06/18 Rx release ipratropium-albuterol 0.5 mg-3 3 ml INH Q4-6H PRN #180 ml 11/15/18 12/06/18 Rx mg(2.5 mg base)/3 mL nebulization soln doxycycline hyclate 100 mg capsule 100 mg PO BID 10 Days #20 cap 12/05/18 12/06/18 Rx prednisone 10 mg tablet 40 mg PO QDAY #28 tab 12/05/18 12/06/18 Rx 8. Time, care, counseling and coordination of care for this discharge is greater than 30 minutes. Exam - Vitals Vital Signs: Vital Signs Temperature 96.8 F Temperature Source Temporal Artery Scan Pulse Rate [Pulse Oximeter] 61 Pulse Rate 60 Respiratory Rate 12 Blood Pressure [Right Arm] 105/61 Blood Pressure [Left Arm] 127/90 Blood Pressure 126/77 Pulse Ox 97 Oxygen Flow Rate 1.5 Oxygen Delivery Method Nasal Cannula Height 5 ft 8 in Weight 220 lb
[2018-12-07 11:07] VITALS: O2SAT 100
[2018-12-08] MEDS ORDERED: AZITHROMYCIN 250 MG TABLET PO SCH (14:00)
== END 2018-12-07 11:30 | disposition short-term general hospital (02) | DRG 192 ==
LOC: ER 06:45 → MED/SURG 06:45
PROVIDERS: ADMIT Family Medicine; ATTEND Family Medicine

== ENCOUNTER 2018-12-31 10:59 | Inpatient (IN) ==
[2018-12-31 11:26] LABS: BASOPHILS # (AUTO) 0.04 10*3/UL; BASOPHILS % (AUTO) 0.6 % (0-1); EOSINOPHILS # (AUTO) 0.09 10*3/UL; EOSINOPHILS % (AUTO) 1.4 % (0-8); Hematocrit [HCT] 44.6 % (42.0-52.0); Hemoglobin [HGB] 14.3 g/dL (14.0-18.0); LYMPHOCYTES # (AUTO) 1.12 10*3/uL; MEAN CORPUSCULAR HEMOGLOBIN 29.7 PG (27-31); MEAN CORPUSCULAR HGB CONC 32.1 g/dL (33-37); MEAN CORPUSCULAR VOLUME 92.5 FL (80-90); MEAN PLATELET VOLUME 11.4 FL (7.4-12.2); MONOCYTES # (AUTO) 0.46 10*3/UL (0.3-0.8); MONOCYTES % (AUTO) 6.9 % (5-15); NEUTROPHILS # (AUTO) 4.92 10*3/UL; NEUTROPHILS % (AUTO) 73.8 % (50-80); RED BLOOD COUNT 4.82 10^6/uL (4.70-6.10)
[2018-12-31 11:28] LABS: PLATELET MORPHOLOGY COMMENT NORMAL MORPHOLOGY (NORM); RBC MORPHOLOGY COMMENT NORMAL MORPHOLOGY (NORM); WBC MORPHOLOGY COMMENT NORMAL MORPHOLOGY (NORM)
--- NOTE | 2018-12-31 11:38 | DI ---
XR CXR 1VW,12/31/2018 11:12 AM: Clinical History: Shortness of breath and hypoxia Previous Exam: October 05, 2018 Findings: A single frontal radiograph of the chest is obtained, and demonstrates clear lungs. The cardiomediast inum and bony thorax are unremarkable. There are degenerative changes involving the right glenohumeral joint. There is a stable pacemaker device. Impression: No acute cardiopulmonary disease.
[2018-12-31 11:44] LABS: BLOOD UREA NITROGEN 13 mg/dL (7-22); BUN/CREATININE RATIO 21.66 (6-20); SERUM ALBUMIN 4.1 g/dL (3.5-4.8)
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
[2018-12-31] MEDS ORDERED: Sodium Chloride 0.9% 1,000 ML PRIMARY IV ONE (12:06)
--- NOTE | 2018-12-31 12:47 | PDOC ---
HPI - History of Present Illness Date of Service: 12/31/18 Time of Service: 13:30 Chief Complaint: Shortness of breath of one day duration History of Present Illness: This is a 73 years old male with medical history significant for history of h ypertension, history of paroxysmal A. 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 He said he used his nebulizer multiple times like 13 times yesterday, in addition there was wheezing, there is no significant cough, no chest pain. The EMS when they broug ht him here they gave him a steroid and breathing treatment. Evaluation in the ER revealed a COPD exacerbation and he was admitted. He said he feels tired right now somewhat short of breath. No chest pain. He somewhat slow to respond. Past Medical History Medical History: 1. 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 2. COPD, patient apparently has a concentrator and he sometimes uses oxygen. 3. Hypertension. 4. Atrial fibrillation on Xarelto for stroke prevention. 5. Sick sinus syndrome status post pacemaker. 6. Tobacco abuse. 7. Glaucoma. 8. Admission in November 2018 for an episode of confusion initially it was thought that he was having seizures however based on [facility] evaluation it was sought it was medication related and he had encephalopathy, the dosage of his fentanyl was cut and also the dosage of his the oxycodone was cut. 8. Osteoarthritis Surgical History: 1. History of for pericardiectomy in the 80s for constrictive pericarditis. 2. History of cardiac pacemaker insertion for sick sinus syndrome. 3. History of total knee replacement. 4. History of left cataract surgery Pertinent Family History: At first the patient said he did not recall but stated that his mother had had a stroke. Past Social History: Smokes daily. Does not drink alcohol. Lives alone. Has 2 children. In the Past 12 Months, Have Used or Abuse Any of the Following Substance: None Medication / Allergies Home Medications: Home Medications Medication Instructions Recorded Confirmed Type Latanoprost [Xalatan] 1 drp OP DAILY drp 02/10/14 12/31/18 History Denosumab [Prolia] 60 mg SUBCUT every 6 months #0 ml 02/11/16 12/31/18 History Diclofenac Sodium [Voltaren] 4 gm TOPICAL QID #3 tube 05/22/17 12/31/18 Rx umeclidinium 62.5 mcg/actuation 62.5 mcg INH QD #30 ea 02/25/18 12/31/18 Clinic blister powder for inhalation olmesartan 40 mg tablet 40 mg PO DAILY #90 tab 04/29/18 12/31/18 Rx rosuvastatin 20 mg tablet 20 mg PO QDAY #90 tab 05/02/18 12/31/18 Rx fluconazole 150 mg tablet 150 mg PO QDAY #5 tab 05/06/18 12/31/18 Rx nystatin 100,000 unit/gram topical 1 applic TOPICAL TID PRN #30 g 08/27/18 12/31/18 Rx powder rivaroxaban 20 mg tablet 20 mg PO QDAY #90 tab 10/15/18 12/31/18 Rx duloxetine 30 mg capsule,delayed 30 mg PO QHS #90 cap 10/30/18 12/31/18 Rx release ipratropium-albuterol 0.5 mg-3 3 ml INH Q4-6H PRN #180 ml 11/15/18 12/31/18 Rx mg(2.5 mg base)/3 mL nebulization soln fentanyl 37.5 mcg/hour transdermal 1 patch TRANSDERM Q72H 12/31/18 12/31/18 History patch oxycodone 10 mg tablet 10 mg PO TID tab 12/31/18 12/31/18 History Allergies/Adverse Reactions: Allergies Allergy/AdvReac Type Severity Reaction Status Date / Time No Known Drug Allergies Allergy NOT Verified 12/31/18 12:13 APPLICABLE PAIN CONTRACT AdvReac NOT Uncoded 12/31/18 12:13 APPLICABLE Review of Systems - Review of Systems All Systems: Reviewed & No Additional Complaints Except as Stated Exam - Vitals Vital Signs: Vital Signs Pulse Rate 67 Height 5 ft 10 in Weight 187 lb - General General Appearance: No Acute Distress, Cooperative, Obese - Head Head Exam: Normal Inspection, Atraumatic - Eye Eye Exam: POSITIVE: Normal Appearance - ENT ENT Exam: POSITIVE: Normal Exam - Neck Neck Exam: Normal Inspection - Respiratory Additional Respiratory Exam Details: Decreased air entry with bilateral expiratory wheezes heard - Cardiovascular Cardiovascular Exam: POSITIVE: RRR - GI/Abdominal GI/Abdominal Exam: POSITIVE: Normal Bowel Sounds, Non Tender, Non Distended, Soft - Rectal Rectal Exam: POSITIVE: Deferred - External Exam: POSITIVE: Deferred - Extremities Extremities Exam: POSITIVE: Normal Inspection Additional Extremities Exam Details: Varicosities noted in both legs worse on the left. - Back Back Exam: POSITIVE: Normal Inspection - Neurological Neurological Exam: POSITIVE: Alert, CN II-XII Intact, No Facial Droop, Speech Intact / Clear, Moves All Extremities Equally Additional Neurological Exam Details: He is somewhat slow to respond, when asking about the day he said his 25th when it's actually the fifth, he knew the month and the year. He knows he that he is in the hospital. - Psychiatric Psychiatric Exam: POSITIVE: Flat Affect - Integumentary Integumentary Exam: POSITIVE: Normal Color Results - Labs CBC and BMP: 12/31/18 10:50 12/31/18 10:50 - EKG Data -: EKG Interpreted by Me - EKG Data EKG Interpretation: Other (At times on demand pacemaker rhythm, the baseline looks like A. fib.) - Imaging Status: Report Reviewed by Me (Chest x-ray No acute cardiopulmonary disease.) Assessment and Plan - Patient Problems (1) COPD exacerbation Current Visit: Yes Status: Acute Comment: I think will continue with steroid, bronchodilator and will give him antibiotics. Code(s): J44.1 - Chronic obstructive pulmonary disease with (acute) exacerbation (2) Elevated brain natriuretic peptide (BNP) level Current Visit: Yes Status: Acute Comment: This may be secondary to the underlying COPD causing pulmonary hypertension, whether there is underlying LV dysfunction is not clear to me. I think we will put him on IV Lasix. Will order an echocardiogram for him tomorrow. Code(s): R79.89 - Other specified abnormal findings of blood chemistry (3) Benign hypertension Current Visit: No Status: Chronic Comment: Continue previous medications (4) Paroxysmal atrial fibrillation Current Visit: No Status: Chronic Onset Date: 02/10/14 Comment: Continue with the Xarelto Code(s): I48.0 - Paroxysmal atrial fibrillation (5) Chronic pain syndrome Current Visit: Yes Status: Acute Comment: Continue his previous medications Code(s): G89.4 - Chronic pain syndrome
[2018-12-31 13:04] LABS: VENOUS PH 7.38 (7.32-7.42)
[2018-12-31] MEDS ORDERED: LIDOCAINE W/ SODIUM BICARB 0.5 ML SYR SUBD PRN (13:25)
[2018-12-31] MEDS ORDERED: ALBUTEROL SULFATE 2.5 MG/3 ML NEB PRN (13:30)
[2018-12-31] MEDS ORDERED: FUROSEMIDE 10 MG/1 ML - 4 ML IVP ONE (13:31)
--- NOTE | 2018-12-31 13:43 | EKG ---
[address] [place] [address] Measurements Intervals [place] Rate: 67 P: PA: 0 QRS: 146 QRSD: 118 T: -51 QT: 426 QTc: 442 Interpretive Statements UNCERTAIN IRREGULAR RHYTHM/ ?atrial fibrillation ELECTRONIC VENTRICULAR PACEMAKER -- CONTOUR ANALYSIS BASED ON INTRINSIC RHYTHM POSSIBLE RIGHT VENTRICULAR HYPERTROPHY [SOME/ALL OF: PROMINENT R IN V1, LATE TRANSITION, RAD, THI, SSS] ST DEVIATION AND MODERATE T-WAVE ABNORMALITY, CONSIDER INFERIOR ISCHEMIA [-0.1+ mV T WAVE IN II/aVF] Compared to ECG 12/06/2018 15:12:25 T-wave abnormality now present Possible ischemia now present Atrial fibrillation probably still present Electronically Signed On 12-31-18 14:11:03 [facility] by Sergio Muñiz MD [email or web address]
[2018-12-31] MEDS ORDERED: LIDOCAINE HCL 2 % 10 ML JELLY URO-JECT TOPICAL PRN (13:50)
[2018-12-31] MEDS: oxyCODONE IR Tab 5 MG TAB PO PRN ×2 (15:00→21:28)
[2018-12-31] MEDS: cefTRIAXone Inj 1 GM in Sodium Chloride 0.9% 100 ML IV SCH (15:01)
[2018-12-31] MEDS: methylPREDNISolone 125 MG/2 ML VIAL IVP SCH ×2 (15:01→21:28)
[2018-12-31] MEDS: Olmesartan Tab 40 MG TAB PO SCH (16:59)
[2018-12-31] MEDS: IPRATROPIUM/ALBUTEROL SULFATE 3 ML NEB NEB SCH (18:40)
[2018-12-31] MEDS: DULOXETINE 30 MG CAPSULE PO SCH (21:27)
[2018-12-31] MEDS: Rosuvastatin Tab 20 MG TAB PO SCH (21:27)
[2018-12-31] MEDS: Rivaroxaban Tab 10 MG TAB PO SCH (21:27)
[2019-01-01] MEDS: IPRATROPIUM/ALBUTEROL SULFATE 3 ML NEB NEB SCH ×4 (00:25→18:26)
[2019-01-01] MEDS: methylPREDNISolone 125 MG/2 ML VIAL IVP SCH ×2 (03:46→09:39)
[2019-01-01 05:24] LABS: BLOOD UREA NITROGEN 19 mg/dL (7-22); BUN/CREATININE RATIO 31.66 (6-20)
[2019-01-01] MEDS: FUROSEMIDE 10 MG/1 ML - 4 ML IVP SCH (07:37)
[2019-01-01] MEDS ORDERED: fentaNYL 50 MCG/ HR PATCH TRANSDERM SCH (09:00)
[2019-01-01] MEDS ORDERED: FENTANYL TRANSDERM SCH (09:00)
--- NOTE | 2019-01-01 09:35 | PDOC(PROG) ---
Date of Service: 01/01/19 Time of Service: 09:30 Interval History: Subjective He said he feels better compared to the night before. He's laying flat on his back. Denying other symptoms. Still slow to respond. Objective : Data - Labs CBC and BMP: 12/31/18 10:50 01/01/19 04:15 Objective : Exam - General General Appearance: No Acute Distress, Cooperative - Head Head Exam: Normal Inspection - Eye Eye Exam: Normal Appearance - ENT ENT Exam: Normal Exam - Neck Neck Exam: Normal Inspection - Respiratory Additional Respiratory Exam Details: Decreased air entry otherwise clear today that his no rhonchi I could hear. - Cardiovascular Cardiovascular Exam: RRR - GI/Abdominal GI/Abdominal Exam: Normal Bowel Sounds, Non Tender, Non Distended, Soft, No Organomegaly - Rectal Rectal Exam: Deferred - External Exam: Deferred Exam: Deferred - Extremities Additional Extremities Exam Details: No edema varicosities noted - Back Back Exam: Normal Inspection - Neurological Neurological Exam: Alert, Oriented x 3, CN II-XII Intact, No Facial Droop, Speech Intact / Clear, Moves All Extremities Equally - Psychiatric Psychiatric Exam: Normal Affect - Integumentary Integumentary Exam: Normal Color Assessment and Plan - Patient Problems (1) COPD exacerbation Current Visit: Yes Status: Acute Comment: Seems to be improving, continue antibiotics will cut back on steroid continue breathing treatment. Just because of the way he responds and the fact that he was off on the day yesterday I did ask PT to do MOCA for him and assess him as he lives alone. Code(s): J44.1 - Chronic obstructive pulmonary disease with (acute) exacerbation (2) Elevated brain natriuretic peptide (BNP) level Current Visit: Yes Status: Acute Comment: Continue diuretics, I did order an echocardiogram hopefully they will be able to do it today. Code(s): R79.89 - Other specified abnormal findings of blood chemistry (3) Benign hypertension Current Visit: No Status: Chronic Comment: Same med (4) Paroxysmal atrial fibrillation Current Visit: No Status: Chronic Onset Date: 02/10/14 Comment: Continue Xarelto. Code(s): I48.0 - Paroxysmal atrial fibrillation (5) Chronic pain syndrome Current Visit: Yes Status: Acute Comment: Continue current pain medications Code(s): G89.4 - Chronic pain syndrome
[2019-01-01] MEDS: Olmesartan Tab 40 MG TAB PO SCH (09:39)
[2019-01-01] MEDS: methylPREDNISolone 40 MG/1 ML VIAL IVP SCH ×2 (12:18→20:07)
[2019-01-01] MEDS: cefTRIAXone Inj 1 GM in Sodium Chloride 0.9% 100 ML IV SCH (15:43)
[2019-01-01] MEDS: oxyCODONE IR Tab 5 MG TAB PO PRN (20:07)
[2019-01-01] MEDS: Rosuvastatin Tab 20 MG TAB PO SCH (20:07)
[2019-01-01] MEDS: Rivaroxaban Tab 10 MG TAB PO SCH (20:07)
[2019-01-01] MEDS: DULOXETINE 30 MG CAPSULE PO SCH (20:08)
[2019-01-02] MEDS: IPRATROPIUM/ALBUTEROL SULFATE 3 ML NEB NEB SCH ×4 (00:48→18:29)
[2019-01-02] MEDS: methylPREDNISolone 40 MG/1 ML VIAL IVP SCH (04:13)
[2019-01-02 05:17] LABS: BLOOD UREA NITROGEN 24 mg/dL (7-22)
[2019-01-02] MEDS: FUROSEMIDE 10 MG/1 ML - 4 ML IVP SCH (07:38)
[2019-01-02] MEDS: oxyCODONE IR Tab 5 MG TAB PO PRN ×2 (09:08→20:15)
[2019-01-02] MEDS: predniSONE Tab 20 MG TAB PO SCH (09:08)
[2019-01-02] MEDS: Olmesartan Tab 40 MG TAB PO SCH (09:09)
[2019-01-02] MEDS: Potassium Chloride Tab 10 MEQ TAB PO SCH (09:15)
--- NOTE | 2019-01-02 11:20 | PDOC(PROG) ---
Interval History: Patient is doing well from COPD exacerbation standpoint. He is being evaluated by [facility] for dementia and PT and OT to see how well he can function at home denies chest pain nausea or vomiting Objective : Data - Labs CBC and BMP: 12/31/18 10:50 01/02/19 04:15 Objective : Exam - General General Appearance: Cooperative - Respiratory Respiratory Exam: Clear to Auscultation - Bilaterally, Breathing Non Labored, Normal To Percussion, Normal to Percussion and Palpation - Cardiovascular Cardiovascular Exam: RRR, No Murmur, No Clicks, No Gallops, No Rubs, PMI Non- Displaced - GI/Abdominal GI/Abdominal Exam: Normal Bowel Sounds, Non Tender, Non Distended, Soft, No Masses, No Hepatomegaly, No Splenomegaly, No Organomegaly - Extremities Extremities Exam: No Clubbing Present, No Edema Present, No Cyanosis Present - Neurological Neurological Exam: Alert, No Facial Droop, Speech Intact / Clear Assessment and Plan - Patient Problems (1) COPD exacerbation Current Visit: Yes Status: Acute Comment: Stable improved will switch over to by mouth prednisone 40 mg daily instructed the patient to use oxygen 24 7 he only uses it at night now Code(s): J44.1 - Chronic obstructive pulmonary disease with (acute) exacerbation (2) Benign hypertension Current Visit: No Status: Chronic Comment: Stable (3) Paroxysmal atrial fibrillation Current Visit: No Status: Chronic Onset Date: 02/10/14 Comment: Stable continue current meds Code(s): I48.0 - Paroxysmal atrial fibrillation (4) Elevated brain natriuretic peptide (BNP) level Current Visit: Yes Status: Acute Comment: Elevated BNP echo pending on by mouth Lasix now 40 by mouth twice a day Code(s): R79.89 - Other specified abnormal findings of blood chemistry (5) Chronic pain syndrome Current Visit: Yes Status: Acute Code(s): G89.4 - Chronic pain syndrome (6) Generalized weakness Current Visit: Yes Status: Acute Comment: Continue PTOT for recommendations on discharge planning Code(s): R53.1 - Weakness
--- NOTE | 2019-01-02 11:47 | PTI REPORT ---
Thank you for the referral of Daniel Villar. He was seen on 01/01/19 for an inpatient evaluation secondary to weakness. SUBJECTIVE: The patient is a 73-year-old male. The patient reports that he lives alone in [place] in a house. He does not have any stairs; he has a ramp to get into his home and uses a cane for community distances. The patient was previously independent and has two dogs. The patient reports back pain and a history of right shoulder pain. PAST MEDICAL HISTORY: Past medical history can be found in the patient's medical record. OBJECTIVE FINDINGS: General observations: Nursing okayed treatment prior to PT. The patient was supine in bed with 0.5 liters of oxygen. Bed mobility: The patient required stand by assist for supine to sit transfer to edge of bed. Transfers: The patient required contact guard assist for sit to stand transfer from edge of bed. Ambulation: The patient is contact guard assist x1 for ambulation and demonstrated lateral sway to the right occasionally and occasional loss of balance and requires cueing to avoid objects on his right side. After 150 feet of ambulation, the patient's oxygen saturation was 87%. Endurance: The patient fatigues quickly. ASSESSMENT: The patient is a 73-year-old male that presents with generalized weakness. The patient would benefit from skilled therapy in order to improve functional mobility and return to prior level of function. The patient's prognosis for therapy is fair. Problem List: Decreased strength Decreased endurance Decreased functional mobility Short-Term Goals: To be met by discharge from inpatient: Patient will be independent with all transfers. Patient will be able to ambulate 300 feet independently with least restrictive assistive device. Patient will be able to tolerate 30 minutes of activity. Long-Term Goals: To be met following discharge from inpatient: Patient may benefit from skilled therapy in order to improve overall functional mobility. TREATMENT PLAN: Patient will be seen B.I.D during the week and one time per day over the weekend as an inpatient for therapeutic exercise, functional activity, neuromuscular reeducation, gait training, and modalities as needed. INITIAL TREATMENT: Treatment today consisted of the initial evaluation. The patient was instructed in seated marches with two pounds x10, seated long arc quads x10, seated clamshells with red theraband x10, seated pillow squeezes x10, seated hamstring curls with red theraband x10, sit to stands x10, NuStep x5 minutes, and around the clock with red theraband x10. The patient's oxygen saturation was monitored during treatment. The patient ambulated approximately 200 feet back to his room with contact guard assist x1 and minimal cueing for safety awareness. The patient was left in bed with bed alarm activated, call light within reach, and oxygen at 1 liter reattached to the wall. We turned oxygen up to 1 liter to improve oxygen saturation. MTDD
[2019-01-02] MEDS: FUROSEMIDE 40 MG TABLET PO SCH ×2 (12:54)
[2019-01-02] MEDS: cefTRIAXone Inj 1 GM in Sodium Chloride 0.9% 100 ML IV SCH (13:56)
--- NOTE | 2019-01-02 15:49 | OTI REPORT ---
Thank you for the referral of Daniel Villar. He was seen on 01/01/19 for an occupational therapy inpatient evaluation generalized weakness. SUBJECTIVE: The patient is a 73-year-old male who is being admitted secondary to having breathing troubles at home. He said he was starting to hallucinate and didn't really know what was going on. He had been in the [facility] [place]; however, he was not able to state which dates. He reported that he was supposed to start some physical therapy at his home. The patient states that prior to admission he was supposed to be sleeping with an oxygen concentrator. He states he has been on a C-PAP but it was hurting his nose so he has not been wearing it for the last couple of months. The patient reports that he forgets names, has difficulty adding and subtracting, and has difficulty with new things. He reports that he has had increased weakness for a couple of years and it has gotten worse. The patient states he relies on his son to do a lot of physical things like lifting his pallets. The patient reports that he has had a few small falls. He has had several right shoulder dislocations and had to have surgery in order for his shoulder to stop dislocating. PAST MEDICAL HISTORY: Past medical history can be found in the patient's medical record. OBJECTIVE FINDINGS: Cognition: Today the patient was obsessed with the Van Cognitive Assessment (MoCA) as he does have some processing issues that the staff has definitely noticed. Visuospatial/Executive: The patient scored 2/5. We asked the patient to put the time as 11:10 and he herlinda out all of the numbers and then ended up putting a 10 after the 11, between the 11 and the 12 and herlinda one line to the 10 for the time. Naming: The patient was able to identify animals. Attention: The patient scored 3/6. He had difficulty repeating backwards as well as subtracting 7 from 100. Language: The patient scored 1/3. He was a very slow processor when trying to think of words that began with different letters. Abstraction: The patient scored 1/2. Delayed recall: The patient scored 3/5. Attention: The patient scored 5/6. The patient had a total score of 18/30 which puts him into the MILD cognitive impairment range. If he were to score a 17/30, he would be considered MODERATELY cognitively impaired. He is on the borderline between MILD and MODERATE. Range of motion: Active range of motion in the upper extremities is 0 to 90 degrees on the right and the left is within normal limits. Strength: The patient had strength of 4+/5 in the left upper extremity. Right upper extremity strength was 3+/5 for flexion, 3/5 for abduction, and 3/5 for external rotation. Activities of daily living: The patient was able to dress lower extremities with increased time and processing. He was slightly confused with the sequencing. Pain: The patient rates the pain in his right shoulder as a 4/10 on the verbal analog scale (0=no pain, 10=worst pain). Activities of daily living: The patient required min assist for upper extremity dressing secondary to his right shoulder. ASSESSMENT: The patient did demonstrate some processing issues. It takes him a long time to process through tasks. He would benefit from further cognitive testing with the CPT tomorrow or this afternoon. The patient was willing and cooperative during today's assessment. The patient appears to be safe with ADLs if he is sitting. Standing is still questionable with his balance. Short-Term Goals: To be met by discharge from inpatient: Patient will compete the CPT and get a score of his processing abilities. Patient will increase bilateral upper extremity strength to 4+/5. Patient will be able to complete all ADLs including functional transfers independently. Patient will be able to complete standing tasks for a minimum of 5 minutes for hygiene and keep his oxygen saturation above 90%. Long-Term Goals: To be met following discharge from inpatient: Patient will return home, but more than likely will need more assistance with some of his ADLs and iADLs. TREATMENT PLAN: Patient will be seen B.I.D during the week and one time per day over the weekend as an inpatient to address the above goals and objectives. INITIAL TREATMENT: Treatment today consisted of the initial evaluation followed by range of motion of the upper extremities and completion of the MoCA. *We did attempt to try to work with the patient two different times this afternoon. One time he was getting a test in radiology and the second time he was hooked up to IVs and was not supposed to move, which would not be functional for the CPT. We will hold off until tomorrow. [facility]
--- NOTE | 2019-01-02 16:02 | OT AM DAY ---
Diagnosis : Weakness AM - Occupational Therapy S: The patient was willing to complete the CPT with occupational therapy. O: The patient participated in the CPT. Medication: The patient scored 4.0 out of 6.0. The patient did demonstrate confusion with his medication management. The initial directions were to put one pill in for each morning of the pill box. At first he started putting the pills in the AM and the PM and then he was starting to skip days. He had to have the therapist cue him to look at the AM medication. He then ended up putting two pills in Sunday, Sunday, and Sunday and did not recognize that there was only one pill in the pill box. With the second pill, he did understand that a PRN medicine should not be put in the pill box. With the third pill, he did start out with the wrong days of the week. He needed cues to look at the days of the week two different times. He did correct the mistake on his own. With the fourth pill, it was 2x twice daily. Even though he had the morning and the evening medication box in front of him, he forgot about having the evening box and put four pills in the morning box. Shopping: The patient scored 4.0 out of 6.0. The patient did look in the wallet and looked at the gloves; however, trying to process getting money and change was very difficult for the patient. He had to be given a specific cue of handing the therapist the exact amount of money. It took the patient increased time to make the change. He eventually was able to do so with cues. He did say, "This shouldn't be a problem, but it is." [place]: The patient scored 5.0 out of 5.0. He did well with this task. Washing: The patient scored 4.5 out of 5.0. The patient needed cues to start the task. A: We will continue with the test this afternoon as the patient's Lasix was "kicking in" and he needed to go to the bathroom right away. By the time we got up to the room, he was too exhausted to finish the test. We will continue this afternoon. P: Continue seeing patient BID during the week and one time per day over the weekend until discharge. BONG
--- NOTE | 2019-01-02 16:06 | OT PM DAY ---
Diagnosis : Weakness PM - Occupational Therapy S: The patient reports no new changes. O: The patient completed the CPT this afternoon with the phone task. Phone: The patient scored 4.0 out of 6.0. He needed a lot of time to try to find the phone number. Eventually he needed the number given to him. He continually misdialed the phone and put too much pressure on it and was not able to call and use the phone. A: The patient's average score is 4.3. He is right in the middle of needing 24-hour care and assisted living. The patient is probably not going to make the decision to not live in his home; however, the therapist thinks there needs to be a big family discussion about increasing the amount of help that the patient needs at home, especially to complete his medication management, to help him with higher level financial affairs, to help him with anything new, and to improve his overall strength and balance. At this point in time his processing skills are pretty slow. The patient would also benefit from having numbers placed in plain sight in case he needs to call different places. The patient is a higher safety risk for going home secondary to his decreased cognitive status. P: Continue seeing patient BID during the week and one time per day over the weekend until discharge. BONG
--- NOTE | 2019-01-02 16:16 | PT.PROG ---
Progress Note Progress Note: S. Patient agreed to go to the therapy gym. O. Patient ambulated 175 feet to the therapy gym where he performed cognitive evaluation with OT then ambulated 175 feet back to his room where he was left with alarm and call light. A. Patient tolerated ambulation well, he is a little unsteady and required min assist and verbal cues for safety during ambulation, he would continue to benefit from skilled therapy to increase strength, endurance and safety at this time. P. Continue POC.
--- NOTE | 2019-01-02 16:19 | PT.PROG ---
Progress Note Progress Note: S. Patient stated that he is feeling alright this afternoon, he agreed to go to the therapy gym O. Patient ambulated 175 feet to the therapy gym where he performed exercises in the form of; seated long arc quads, marches, ball squeezes all x 10 bilaterally with 3# Patient used the nu-step x 8 minutes and the treadmill x 5 minutes then ambulated 175 feet to his room and was left with call light and alarm. A. Patient tolerated therapy well, he was able to perform all exercises with no increase in pain or problems. Patient continues to require min assist with transfers and ambulation, he would continue to benefit from skilled therapy to increase strength, endurance, and safety at this time. P. Continue POC.
[2019-01-02] MEDS: Rosuvastatin Tab 20 MG TAB PO SCH (20:15)
[2019-01-02] MEDS: Rivaroxaban Tab 10 MG TAB PO SCH (20:16)
[2019-01-02] MEDS: DULOXETINE 30 MG CAPSULE PO SCH (20:16)
[2019-01-03] MEDS: IPRATROPIUM/ALBUTEROL SULFATE 3 ML NEB NEB SCH ×3 (00:20→13:01)
[2019-01-03] MEDS: FUROSEMIDE 40 MG TABLET PO SCH ×2 (07:59→13:17)
[2019-01-03] MEDS: Potassium Chloride Tab 10 MEQ TAB PO SCH (08:42)
[2019-01-03] MEDS: predniSONE Tab 20 MG TAB PO SCH (08:43)
[2019-01-03] MEDS: oxyCODONE IR Tab 5 MG TAB PO PRN ×2 (08:43→13:17)
[2019-01-03] MEDS: Olmesartan Tab 40 MG TAB PO SCH (08:43)
--- NOTE | 2019-01-03 10:54 | DCSUMMARY ---
Hospitalization Summary Hospital Course: Final Discharge Diagnosis: Diagnostic Data, Laboratory Data, and Procedures of Signifigance: History and Physical pertinent to Admission: Past Medical History Medical History: 1. 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 2. COPD, patient apparently has a concentrator and he sometimes uses oxygen. 3. Hypertension. 4. Atrial fibrillation on Xarelto for stroke prevention. 5. Sick sinus syndrome status post pacemaker. 6. Tobacco abuse. 7. Glaucoma. 8. Admission in November 2018 for an episode of confusion initially it was thought that he was having seizures however based on [facility] evaluation it was sought it was medication related and he had encephalopathy, the dosage of his fentanyl was cut and also the dosage of his the oxycodone was cut. 8. Osteoarthritis Surgical History: 1. History of for pericardiectomy in the 80s for constrictive pericarditis. 2. History of cardiac pacemaker insertion for sick sinus syndrome. 3. History of total knee replacement. 4. History of left cataract surgery Pertinent Family History: At first the patient said he did not recall but stated that his mother had had a stroke. Past Social History: Smokes daily. Does not drink alcohol. Lives alone. Has 2 children. In the Past 12 Months, Have Used or Abuse Any of the Following Substance: None Course of Hospitalization: This very nice 73-year-old gentleman with history of paroxysmal A. fib, amongst other medical issues see above. Was admitted with some shortness of breath diagnosed as COPD exacerbation patient did quite well with resolution of his symptoms and is back to baseline he was also evaluated by PT and OT which recommended home health for this patient after they had a family meeting. Patient will be discharged home on prednisone 40 for 5 more days we did give him some Lasix by mouth twice a day in the hospital he had some decent diuresis echo was done which showed some mild diastolic dysfunction he will follow-up with his primary care physician for possible cardiology follow-up. Patient is back to his baseline and is either to go home. On the date of discharge, the patient was examined: Gen.: No acute distress, alert, nontoxic Heart: Regular rate and rhythm, no murmurs, clicks, gallops, or rubs Lungs: Clear to auscultation bilaterally, breathing is nonlabored Abdomen/GI: Normal tones on auscultation, soft, nontender, nondistended Musculoskeletal/extremities: No clubbing, cyanosis, or edema Vitals reviewed and are listed below Vital Signs (24 hrs) 01/02/19 11:00 01/02/19 13:00 01/02/19 13:07 Temperature 98 F Pulse Rate 60 Pulse Rate Pulse Oximeter 62 Respiratory Rate 18 16 Blood Pressure Left Arm 135/73 Pulse Ox 88 90 91 01/02/19 13:08 01/02/19 15:00 01/02/19 17:00 Temperature 97.8 F Pulse Rate 60 Pulse Rate Pulse Oximeter 66 Respiratory Rate 16 20 Blood Pressure Left Arm 146/66 Pulse Ox 90 94 01/02/19 18:29 01/02/19 18:30 01/02/19 18:57 Temperature 97.1 F Pulse Rate 65 60 Pulse Rate Pulse Oximeter 63 Respiratory Rate 20 18 20 Blood Pressure Left Arm 121/78 Pulse Ox 90 96 01/02/19 19:00 01/02/19 23:00 01/03/19 00:01 Temperature 97.6 F Pulse Rate Pulse Rate Pulse Oximeter 69 Respiratory Rate 24 Blood Pressure Left Arm 155/92 Pulse Ox 96 93 94 01/03/19 00:08 01/03/19 00:20 01/03/19 00:21 Temperature Pulse Rate 60 62 Pulse Rate Pulse Oximeter Respiratory Rate 18 18 Blood Pressure Left Arm 158/77 Pulse Ox 91 01/03/19 03:00 01/03/19 04:04 01/03/19 04:20 Temperature 97.2 F Pulse Rate Pulse Rate Pulse Oximeter 62 Respiratory Rate 20 Blood Pressure Left Arm 160/86 Pulse Ox 93 92 94 01/03/19 06:32 01/03/19 06:33 01/03/19 07:00 Temperature Pulse Rate 64 64 Pulse Rate Pulse Oximeter 60 Respiratory Rate 18 18 Blood Pressure Left Arm Pulse Ox 94 01/03/19 08:00 01/03/19 08:16 01/03/19 10:49 Temperature 98.9 F Pulse Rate Pulse Rate Pulse Oximeter 60 Respiratory Rate 18 Blood Pressure Left Arm 162/94 Pulse Ox 91 91 92 Assessment and Plan: 1. As per discharge assessments above 2. Disposition: Home 3. Condition on discharge, stable and improved. 4. Diet: regular diet 5. Activities: resume normal activities 6. Follow-Up: 1. PCP Dr. Rangel 2. 7. Medications at the Time of Discharge: Home Medications Medication Instructions Recorded Confirmed Type Latanoprost [Xalatan] 1 drp OP DAILY drp 02/10/14 12/31/18 History Denosumab [Prolia] 60 mg SUBCUT every 6 months #0 ml 02/11/16 12/31/18 History Diclofenac Sodium [Voltaren] 4 gm TOPICAL QID #3 tube 05/22/17 12/31/18 Rx umeclidinium 62.5 mcg/actuation 62.5 mcg INH QD #30 ea 02/25/18 12/31/18 Clinic blister powder for inhalation olmesartan 40 mg tablet 40 mg PO DAILY #90 tab 04/29/18 12/31/18 Rx rosuvastatin 20 mg tablet 20 mg PO QDAY #90 tab 05/02/18 12/31/18 Rx fluconazole 150 mg tablet 150 mg PO QDAY #5 tab 05/06/18 12/31/18 Rx nystatin 100,000 unit/gram topical 1 applic TOPICAL TID PRN #30 g 08/27/18 12/31/18 Rx powder rivaroxaban 20 mg tablet 20 mg PO QDAY #90 tab 10/15/18 12/31/18 Rx duloxetine 30 mg capsule,delayed 30 mg PO QHS #90 cap 10/30/18 12/31/18 Rx release ipratropium-albuterol 0.5 mg-3 3 ml INH Q4-6H PRN #180 ml 11/15/18 12/31/18 Rx mg(2.5 mg base)/3 mL nebulization soln fentanyl 37.5 mcg/hour transdermal 1 patch TRANSDERM Q72H 12/31/18 12/31/18 History patch oxycodone 10 mg tablet 10 mg PO TID tab 12/31/18 12/31/18 History predniSONE Tab [Deltasone Tab] 40 mg PO DAILY #20 tab 01/03/19 Rx 8. Time, care, counseling and coordination of care for this discharge is greater than 30 minutes. Exam - Vitals Vital Signs: Vital Signs Temperature 98.9 F Temperature Source Temporal Artery Scan Pulse Rate [Pulse Oximeter] 60 Pulse Rate 64 Respiratory Rate 18 Blood Pressure [Left Arm] 162/94 Blood Pressure [Right Arm] 167/84 Blood Pressure 130/79 Pulse Ox 92 Oxygen Flow Rate .5 Oxygen Delivery Method Nasal Cannula Height 5 ft 10 in Weight 221 lb Patient Problems - Patient Problem List (1) COPD exacerbation Current Visit: Yes Status: Acute Code(s): J44.1 - Chronic obstructive pulmonary disease with (acute) exacerbation Category: Medical (2) Benign hypertension Current Visit: No Status: Chronic Category: Medical (3) Paroxysmal atrial fibrillation Current Visit: No Status: Chronic Onset Date: 02/10/14 Code(s): I48.0 - Paroxysmal atrial fibrillation Category: Medical (4) Elevated brain natriuretic peptide (BNP) level Current Visit: Yes Status: Acute Code(s): R79.89 - Other specified abnormal findings of blood chemistry Category: Medical (5) Chronic pain syndrome Current Visit: Yes Status: Acute Code(s): G89.4 - Chronic pain syndrome Category: Medical (6) Generalized weakness Current Visit: Yes Status: Acute Code(s): R53.1 - Weakness Category: Medical
--- NOTE | 2019-01-03 11:47 | OT.PROG ---
Progress Note Progress Note: S: pt reported that he was hoping to go home soon. He stated he had already been receiving home health. O: pt was transferred downstairs to therapy where he completed x10 sit to stands 4# ball, and shoulder press 4# ball x10 to increase LE/UE strengthening. He also completed UE exercises with RTB in bicep flex and shoulder ext x15 with BUE's. He transferred back to his room using no assistive device. A: pt may benefit from Home Health after d/c to ensure safety during transfers and ADL's and strengthening. P: continue per POC.
--- NOTE | 2019-01-03 11:54 | OT.PROG ---
Progress Note Progress Note: S: pt stated he thinks he will get to go home later this afternoon when his son arrives. O: pt was seen in his room in the a.m. and completed entire transfer downstairs using no assistive device. He was left on 1 li of o2. He completed arm bike for 8 min to increase activity tolerance. He then transferred Ind to mat table where he completed exercises with BTB in bicep flex x10, then RTB in all other planes x15 below 90 deg to prevent increase pain in shoulder. OT returned him to his room where he completed toilet transfer Ind and was nursing notified of his whereabouts. A: pt may continue to benefit from therapy to increase his strength and ADL's most likely in Home health setting. P: continue per POC.
[2019-01-03 13:01] VITALS: RESP 16; O2SAT 93
[2019-01-03 13:25] VITALS: TEMP 97.7
[2019-01-03 13:26] VITALS: BP 154/87
--- NOTE | 2019-01-03 16:47 | PT.PROG ---
Progress Note Progress Note: S. Patient stated that he is feeling alright this morning, he agreed to go to the therapy gym. O. Patient ambulated 175 feet to the therapy gym where he used the nu-step x 10 minutes then performed seated exercises in the form of; long arc quads, marches, heel toe raises, ball squeezes, clam shells, resisted knee flexion all x 15 bilaterally, sit to stands x 10, Patient then ambulated 175 feet back to his room where he was left with alarm and call light. A. Patient tolerated therapy well, he continues to fatigue easily and requires frequent rest breaks to recover, he would continue to benefit from skilled therapy to increase strength, endurance and safety at this time. P. Continue POC.
--- NOTE | 2019-01-03 16:50 | OT.PROG ---
Progress Note Progress Note: S. Patient stated that he is tired this afternoon and doesn't want to do much however agreed to go for a walk. O. Patient ambulated 300 feet around the nurses station then another 300 feet after short seated rest break. Patient was left in bed with alarm and call light. A. Patient tolerated ambulation well, he has slight balance deficits and required contact guard assist, he would benefit from home health at this time. P. Continue POC.
== END 2019-01-03 14:56 | disposition home or self-care (01) | DRG 192 ==
LOC: ER 10:59 → MED/SURG 12:40
PROVIDERS: ADMIT Internal Medicine; ATTEND Internal Medicine